=== PATIENT | male | born 1945 | race Caucasian/White ===

== ENCOUNTER 2025-01-16 12:03 | Emergency (ER) | payer MEDICARE, SELFPAY ==
[2025-01-16 12:17] LABS: Glucometer 145 mg/dL (74-106)
--- NOTE | 2025-01-16 12:25 | SWNOTE1 ---
SUNDAR called pt's daughter to check if [facility] called her. She voiced they did and she is driving and is 2 hours away. SUNDAR asked if anyone was closer, she stated no. SUNDAR advised daughter that we will call with update once we know more in regards to status of patient. Pt was crying on phone with SUNDAR. SUNDAR advised daughter to drive safely.
--- NOTE | 2025-01-16 12:35 | PC.NURSE ---
Dr. Yadav speaks with Aubrie Olivia's partner and she reports he will sign off the certificate.
--- NOTE | 2025-01-16 12:39 | ED.GENADUL1 ---
HPI HPI - General Adult General Chief complaint: Cardiac Arrest/CPR Stated complaint: UNRESPONSIVE Time Seen by Provider: 01/16/25 12:05 History of Present Illness HPI narrative: 80-year-old male presented in cardiac arrest. He was recently admitted to [facility] where he was treated for shock. In reviewing his history it appears he was admitted there for shock apparently due to UTI. He was then discharged and went to the [facility] and was at physical therapy today when he had his cardiac arrest event. It was witnessed by staff and CPR was started immediately. Paramedics arrived and continued resuscitation attempts. He had received 2 defibrillations and 2 doses of epinephrine in the prehospital setting. At no point was he responsive and at no point did he have a pulse or have any change in his status. No further history is obtainable. Related Data Allergies Allergy/AdvReac Type Severity Reaction Status Date / Time Penicillins Allergy Unknown Unknown Verified 01/16/25 12:37 Review of Systems ROS Narrative Not obtainable, cardiac arrest [facility] Medical History (Updated 01/16/25 @ 12:39 by Rush Yadav MD) Left ureteral calculus ?N20.1 - Calculus of ureter (ICD-10) Diabetes ?E11.9 - Type 2 diabetes mellitus without complications (ICD-10) CHF (congestive heart failure) ?I50.9 - Heart failure, unspecified (ICD-10) MYRTLE (acute kidney injury) ?N17.9 - Acute kidney failure, unspecified (ICD-10) Metabolic acidosis ?E87.20 - Acidosis, unspecified (ICD-10) BPH (benign prostatic hyperplasia) ?N40.0 - Benign prostatic hyperplasia without lower urinary tract symptoms (ICD-10) Acute urinary retention ?R33.8 - Other retention of urine (ICD-10) Exam Narrative Exam Narrative: Nurses note and vital signs reviewed and patient is not hypoxic. General: The patient is receiving CPR and is being bagged upon arrival. He is cyanotic. Skin: Bruise noted on his right arm and on his lower abdomen. Head: Normocephalic, atraumatic Eye: Pupils are fixed and Ears, Nose, Mouth, and Throat: He is being bagged. There is blood in his mouth Cardiovascular: No heart tones or pulse Respiratory: No respiratory effort GI: Obese and nondistended Musculoskeletal: IO present in his left lower leg. No obvious deformity to his extremity Neurological: Unresponsive Psychiatric: Cannot be assessed Constitutional Vital Signs, click to edit/add: Last Vital Signs Pulse 0 L 01/16/25 12:42 Resp 0 L 01/16/25 12:42 BP 150/100 H 01/16/25 12:42 Course Vital Signs Vital signs: Vital Signs Pulse Rate 0 L 01/16/25 12:42 Respiratory Rate 0 L 01/16/25 12:42 Blood Pressure 150/100 H 01/16/25 12:42 Pulse Rate 0 L 01/16/25 12:42 Respiratory Rate 0 L 01/16/25 12:42 Blood Pressure 150/100 H 01/16/25 12:42 Medical Decision Making MDM Narrative Medical decision making narrative: CPR was in progress upon arrival and this was continued. The following procedure was performed by me. After suctioning out his mouth with [place] and obtaining copious amounts of blood he was orotracheally intubated on first attempt with a 7.5 ET tube with direct visualization of the tube passing between the cords. Appropriate change on the capnometer was present and bilateral breath sounds present. He was given 3 more doses of IV epinephrine in addition to the 2 that he received in the prehospital setting. Compressions were continued but at no point did his cardiac status change and he did not have return of spontaneous circulation. At no point did he have a pulse or spontaneous respirations. His pupils were fixed and dilated. He was pronounced at 12:14 PM. I spoke to Dr. Marin who is covering Dr. Olivia. She reports that he will sign the certificate. I spoke to the director organizational's office, Cesar, and the patient's body is released. I spoke to the patient's daughter, Priya. She is aware of his status and is coming to the hospital. Differential Diagnosis Differential Diagnosis: Cardiac arrest, NC, cardiac dysrhythmia, PE Lab Data Lab results reviewed: Yes I reviewed the patient's lab results Labs: Lab Results 01/16/25 Range/Units 12:12 POC Glucose 145 H (74-106) mg/dL Discharge Plan Discharge Patient Disposition: Date/Time: 01/16/25 12:15 Probable Cause of Probable Cause of : Coronary artery disease
[2025-01-16 12:42] VITALS: BP 150/100; PULSE 0
--- NOTE | 2025-01-16 12:43 | PC.NURSE ---
attempt to call pt daughter, message left for her to call at this time
--- NOTE | 2025-01-16 13:10 | PC.NURSE ---
Dr Yadav speaks with Cesar Baker at the [employer] dry molder's office
--- NOTE | 2025-01-16 13:24 | PC.NURSE ---
Spoke with nurse Vikki gonzalez and let her know that pt had @ 12:14. Daughter is also on way to [facility].
--- NOTE | 2025-01-16 19:27 | PC.NURSE ---
To room to inform family of [facility] ETA of 2015. Family not in room.
--- NOTE | 2025-01-16 19:30 | PC.NURSE ---
[facility] home Call Service notified of patient's . Requested information given to home including Patient Name, , TOD, SS# and Emergency Contact information for patient's daugher. home will call back with ETA. [facility] home ETA is 2014. Family made aware of Home ETA by Citlaly Mckeon RN.
--- NOTE | 2025-01-16 19:34 | PC.NURSE ---
Family found in conference room and informed of ETA. Daughter states no to tissue donation.
--- NOTE | 2025-01-16 19:45 | PC.NURSE ---
[facility] contacted for pt's case reference number [id number]. Informed them of pt's and daughter's decision to not donate tissues. The verbalized understanding and closed the case.
--- NOTE | 2025-01-16 20:05 | PC.NURSE ---
[facility] here to cook pickled meat body. Signature of attendant obtained.
== END 2025-01-16 12:15 | disposition expired ==
PROVIDERS: Emergency Provider Emergency Medicine; PCP Family Medicine
DX: I46.9 Cardiac arrest, cause unspecified (principal); Z87.440 Personal history of urinary (tract) infections
CPT/HCPCS: 31500; 36415; 92950; 99285; J0171; J0612